=== PATIENT | male | born 1940 | race Caucasian/White ===

== ENCOUNTER 2017-08-21 07:08 | Emergency (ER) | payer MEDICARE, OTHER ==
[2017-08-21 07:14] VITALS: BP 161/73; PULSE 67; RESP 17; TEMP 97.6
[2017-08-21] MEDS ORDERED: PENICILLIN G BENZATHINE 1,200,000 UNIT/2 ML SYRINGE IM STA (07:37)
--- NOTE | 2017-08-21 07:39 | ED ---
General Adult HPI - General Chief complaint: Dental/Oral Stated complaint: Dental Time Seen by Provider: 08/21/17 07:22 Source: patient, RN notes reviewed Mode of arrival: ambulatory Limitations: no limitations - History of Present Illness Initial comments: Patient is a pleasant 76-year-old male presenting to the emergency department complaining of dental pain. Patient has had some discomfort for several days however noticed swelling yesterday. Discomfort is left lower. Patient does have a partial in this area. He is admitted as patient does have a history of similar problem with a different tooth previously. No fevers. Patient states discomfort is mild however is more concerned regarding swelling. No dyspnea. Patient is tolerating oral intake. - Related Data Previous Rx's Medication Instructions Recorded Penicillin V Potassium [Pen Vee K] 500 mg PO QID #40 tab 08/21/17 Allergies Allergy/AdvReac Type Severity Reaction Status Date / Time No Known Allergies Allergy Verified 08/21/17 07:10 Review of Systems ROS Statement: Those systems with pertinent positive or pertinent negative responses have been documented in the HPI. ROS Other: All systems not noted in ROS Statement are negative. Constitutional: Denies: fever Eyes: Denies: eye pain ENT: Reports: dental pain. Denies: ear pain Respiratory: Denies: cough, dyspnea Cardiovascular: Denies: chest pain Endocrine: Denies: fatigue Gastrointestinal: Denies: abdominal pain Genitourinary: Denies: dysuria Musculoskeletal: Denies: back pain Skin: Denies: rash Neurological: Denies: weakness Past Medical History Past Medical History: No Reported History, Cancer Additional Past Medical History / Comment(s): Prostate CA -received radiation 2007-06 History of Any Multi-Drug Resistant Organisms: None Reported Past Surgical History: Tonsillectomy Past Psychological History: No Psychological Hx Reported Smoking Status: Current every day smoker Past Alcohol Use History: Occasional Past Drug Use History: None Reported General Exam Limitations: no limitations General appearance: alert, in no apparent distress Head exam: Present: atraumatic Eye exam: Present: normal appearance, PERRL ENT exam: Present: other ( left Maxillary region with mild swelling. No drainable abscess visualized. Mild gingival swelling.) Neck exam: Present: normal inspection Respiratory exam: Present: normal lung sounds bilaterally Cardiovascular Exam: Present: regular rate, normal rhythm GI/Abdominal exam: Present: soft. Absent: tenderness Neurological exam: Present: alert Psychiatric exam: Present: normal affect, normal mood Skin exam: Present: normal color Course Vital Signs 08/21/17 07:10 Temperature 97.6 F Pulse Rate 67 Respiratory 17 Rate Blood Pressure 161/73 O2 Sat by Pulse 100 Oximetry Disposition Clinical Impression: Dental abscess Disposition: HOME SELF-CARE Condition: Stable Instructions: Dental Abscess (ED), Toothache (ED) Additional Instructions: Please follow-up with your dentist in the next day or 2 for recheck. Return for fever, increased pain, increased swelling, worsening symptoms or any other concerns. Avoid using your partial. Prescriptions: Penicillin V Potassium [Pen Vee K] 500 mg PO QID #40 tab Referrals: Ulises Duarte MD [Primary Care Provider] - 1-2 days Time of Disposition: 07:38
== END 2017-08-21 08:00 | disposition home or self-care (01) ==
LOC: EC 07:08
DX: K04.7 Periapical abscess without sinus (principal); F17.200 Nicotine dependence, unspecified, uncomplicated
CPT/HCPCS: 99282; 96372; J0561

== ENCOUNTER 2019-10-23 03:47 | Inpatient (IN) | payer MEDICARE, OTHER ==
[2019-10-23] MEDS ORDERED: NITROGLYCERIN-D5W PMX 50 MG in DEXTROSE/WATER 1 250ML.BAG IV ONE (03:51)
[2019-10-23 04:01] LABS: Basophils # (A) 0.4 k/uL (0-0.2); Basophils % (A) 3 %; Eosinophils # (A) 0.4 k/uL (0-0.7); Eosinophils % (A) 3 %; HCT 50.5 % (39.0-53.0); HGB 16.8 gm/dL (13.0-17.5); Lymphocytes # (A) 3.9 k/uL (1.0-4.8); Lymphocytes % (A) 33 %; MCH 32.3 pg (25.0-35.0); MCHC 33.3 g/dL (31.0-37.0); MCV 96.9 fL (80.0-100.0); Mean Platelet Volume 7.7; Monocytes # (A) 0.7 k/uL (0-1.0); Monocytes % (A) 6 %; Neutrophils # (A) 6.2 k/uL (1.3-7.7); Neutrophils % (A) 53 %; Platelet Count 224 k/uL (150-450); RBC 5.21 m/uL (4.30-5.90); RDW 13.9 % (11.5-15.5); WBC 11.8 k/uL (3.8-10.6)
--- NOTE | 2019-10-23 04:04 | ED ---
SOB HPI - General Chief Complaint: Shortness of Breath Stated Complaint: Diff Breathing Time Seen by Provider: 10/23/19 03:50 Source: EMS Mode of arrival: EMS - History of Present Illness Initial Comments: This patient is 78-year-old man who presents by ambulance to be a value for shortness of breath. Patient had called EMS tonight after his breathing was getting progressively worse. The patient denied chest pain but did state that he was having some intermittent discomfort over the past day. Patient denies history of previous heart attack or congestive heart failure. He denies diaphoresis, palpitations, syncope or lightheadedness, nausea or vomiting. MD Complaint: shortness of breath -: hour(s) Consistency: constant Improves With: oxygen Worsens With: lying flat Associated Symptoms: denies other symptoms Treatments Prior to Arrival: oxygen, aspirin, nitroglycerin - Related Data Home Oxygen Therapy: No Previous Rx's Medication Instructions Recorded Penicillin V Potassium [Pen Vee K] 500 mg PO QID #40 tab 08/21/17 Allergies Allergy/AdvReac Type Severity Reaction Status Date / Time No Known Allergies Allergy Verified 08/21/17 07:10 Review of Systems ROS Statement: Those systems with pertinent positive or pertinent negative responses have been documented in the HPI. ROS Other: All systems not noted in ROS Statement are negative. Constitutional: Denies: fever, chills, weakness Respiratory: Reports: dyspnea. Denies: cough, hemoptysis Cardiovascular: Reports: orthopnea. Denies: chest pain, palpitations, edema, syncope Gastrointestinal: Denies: abdominal pain, nausea, vomiting, melena, hematochezia Genitourinary: Denies: dysuria, hematuria Musculoskeletal: Denies: back pain Skin: Denies: rash Neurological: Denies: headache, weakness, numbness Psychiatric: Reports: anxiety Past Medical History Past Medical History: No Reported History, Cancer Additional Past Medical History / Comment(s): Prostate CA -received radiation 2007-06 History of Any Multi-Drug Resistant Organisms: None Reported Past Surgical History: Tonsillectomy Past Psychological History: No Psychological Hx Reported Smoking Status: Current every day smoker Past Alcohol Use History: Occasional Past Drug Use History: None Reported General Exam General appearance: alert, in distress Head exam: Present: atraumatic, normocephalic Eye exam: Present: normal appearance. Absent: scleral icterus, conjunctival injection ENT exam: Present: normal oropharynx Neck exam: Present: normal inspection Respiratory exam: Present: respiratory distress, rales, accessory muscle use. Absent: wheezes, rhonchi, stridor, decreased breath sounds, prolonged expiratory Cardiovascular Exam: Present: regular rate, normal rhythm, normal heart sounds. Absent: systolic murmur, diastolic murmur, rubs, gallop GI/Abdominal exam: Present: soft. Absent: distended, tenderness, guarding, rebound, rigid, mass Extremities exam: Present: normal inspection, normal capillary refill. Absent: pedal edema, calf tenderness Back exam: Present: normal inspection. Absent: CVA tenderness (R), CVA tenderness (L) Neurological exam: Present: alert Skin exam: Present: warm, intact, normal color, diaphoretic. Absent: rash Course Vital Signs 10/23/19 10/23/19 10/23/19 03:50 03:56 04:02 Pulse Rate 104 H 98 Respiratory 36 H 34 H 36 H Rate Blood Pressure 173/126 175/120 O2 Sat by Pulse 98 98 Oximetry 10/23/19 10/23/19 10/23/19 04:08 04:13 04:18 Pulse Rate 92 93 91 Respiratory 36 H 36 H 36 H Rate Blood Pressure 187/117 186/112 179/105 O2 Sat by Pulse 97 98 98 Oximetry 10/23/19 04:27 Pulse Rate 86 Respiratory 32 H Rate Blood Pressure 158/99 O2 Sat by Pulse 98 Oximetry - Reevaluation(s) Reevaluation #1: 10/23/19 04:07 After reviewing patient's ECG, case discussed with Dr. Dooley, and the [employer] is activated. Medical Decision Making - Lab Data Result diagrams: 10/23/19 03:53 10/23/19 03:53 Lab Results 10/23/19 10/23/19 10/23/19 Range/Units 03:53 03:53 03:53 WBC 11.8 H (3.8-10.6) k/uL RBC 5.21 (4.30-5.90) m/uL Hgb 16.8 (13.0-17.5) gm/dL Hct 50.5 (39.0-53.0) % MCV 96.9 (80.0-100.0) fL MCH 32.3 (25.0-35.0) pg MCHC 33.3 (31.0-37.0) g/dL RDW 13.9 (11.5-15.5) % Plt Count 224 (150-450) k/uL Neutrophils % 53 % Lymphocytes % 33 % Monocytes % 6 % Eosinophils % 3 % Basophils % 3 % Neutrophils # 6.2 (1.3-7.7) k/uL Lymphocytes # 3.9 (1.0-4.8) k/uL Monocytes # 0.7 (0-1.0) k/uL Eosinophils # 0.4 (0-0.7) k/uL Basophils # 0.4 H (0-0.2) k/uL PT (9.0-12.0) sec INR (<1.2) APTT (22.0-30.0) sec Sodium 142 (137-145) mmol/L Potassium 4.2 (3.5-5.1) mmol/L Chloride 109 H (98-107) mmol/L Carbon Dioxide 21 L (22-30) mmol/L Anion Gap 12 mmol/L BUN 20 (9-20) mg/dL Creatinine 0.83 (0.66-1.25) mg/dL Est GFR (CKD-EPI)AfAm >90 (>60 ml/min/1.73 sqM) Est GFR (CKD-EPI)NonAf 86 (>60 ml/min/1.73 sqM) Glucose 208 H (74-99) mg/dL Calcium 8.4 (8.4-10.2) mg/dL Magnesium 2.2 (1.6-2.3) mg/dL Total Bilirubin 0.3 (0.2-1.3) mg/dL AST 29 (17-59) U/L ALT 14 L (21-72) U/L Alkaline Phosphatase 113 (38-126) U/L NT-Pro-B Natriuret Pep 799 pg/mL Total Protein 7.0 (6.3-8.2) g/dL Albumin 4.3 (3.5-5.0) g/dL 10/23/19 Range/Units 03:53 WBC (3.8-10.6) k/uL RBC (4.30-5.90) m/uL Hgb (13.0-17.5) gm/dL Hct (39.0-53.0) % MCV (80.0-100.0) fL MCH (25.0-35.0) pg MCHC (31.0-37.0) g/dL RDW (11.5-15.5) % Plt Count (150-450) k/uL Neutrophils % % Lymphocytes % % Monocytes % % Eosinophils % % Basophils % % Neutrophils # (1.3-7.7) k/uL Lymphocytes # (1.0-4.8) k/uL Monocytes # (0-1.0) k/uL Eosinophils # (0-0.7) k/uL Basophils # (0-0.2) k/uL PT 9.8 (9.0-12.0) sec INR 0.9 (<1.2) APTT 23.8 (22.0-30.0) sec Sodium (137-145) mmol/L Potassium (3.5-5.1) mmol/L Chloride (98-107) mmol/L Carbon Dioxide (22-30) mmol/L Anion Gap mmol/L BUN (9-20) mg/dL Creatinine (0.66-1.25) mg/dL Est GFR (CKD-EPI)AfAm (>60 ml/min/1.73 sqM) Est GFR (CKD-EPI)NonAf (>60 ml/min/1.73 sqM) Glucose (74-99) mg/dL Calcium (8.4-10.2) mg/dL Magnesium (1.6-2.3) mg/dL Total Bilirubin (0.2-1.3) mg/dL AST (17-59) U/L ALT (21-72) U/L Alkaline Phosphatase (38-126) U/L NT-Pro-B Natriuret Pep pg/mL Total Protein (6.3-8.2) g/dL Albumin (3.5-5.0) g/dL - EKG Data -: EKG Interpreted by Nv EKG shows normal: sinus rhythm, axis (Normal), intervals (Normal), QRS complexes (There are ST elevations in inferior leads, 2, 3, aVF. There are ST depressions in leads 1 and aVL. Consistent with acute [place].) Rate: normal (Rate 99 bpm) Interpretation: acute [place] Disposition Referrals: Ulises Duarte MD [Primary Care Provider] - 1-2 days
[2019-10-23 04:09] LABS: INR 0.9 (<1.2); Partial Thromboplastin Time 23.8 sec (22.0-30.0); Prothrombin Time 9.8 sec (9.0-12.0)
[2019-10-23] MEDS ORDERED: HEPARIN SODIUM,PORCINE 5,000 UNIT/ML 1 ML VIAL IV ONE (04:09)
[2019-10-23] MEDS ORDERED: HEPARIN SODIUM,PORCINE 5,000 UNIT/ML 1 ML VIAL IV PRN (04:09)
[2019-10-23 04:11] LABS: ALT 14 U/L (21-72); AST 29 U/L (17-59); African American GFR (CKD) >90 (>60 ml/min/1.73 sqM); Albumin 4.3 g/dL (3.5-5.0); Alkaline Phosphatase 113 U/L (38-126); Anion Gap 12 mmol/L; Blood Urea Nitrogen 20 mg/dL (9-20); Calcium 8.4 mg/dL (8.4-10.2); Carbon Dioxide 21 mmol/L (22-30); Chloride 109 mmol/L (98-107); Glucose 208 mg/dL (74-99); Magnesium 2.2 mg/dL (1.6-2.3); Non-African American GFR(CKD) 86 (>60 ml/min/1.73 sqM); Potassium 4.2 mmol/L (3.5-5.1); Sodium 142 mmol/L (137-145); Total Bilirubin 0.3 mg/dL (0.2-1.3)
[2019-10-23] MEDS ORDERED: ATORVASTATIN 80 MG TAB PO STA (04:11)
[2019-10-23] MEDS ORDERED: HEPARIN SOD,PORK IN 0.45% NACL 25,000 UNIT in 0.45% NACL 1 250ML.BAG IV SCH (04:15)
--- NOTE | 2019-10-23 04:16 | XR ---
EXAMINATION TYPE: XR chest 1V portable DATE OF EXAM: 10/23/2019 COMPARISON: NONE HISTORY: Short of breath TECHNIQUE: Single frontal view of the chest is obtained. FINDINGS: There is moderate pulmonary interstitial and alveolar edema. Heart size is normal. There a re chest leads. There is no definite pleural effusion. IMPRESSION: Pulmonary edema. This could be acute congestive heart failure.
[2019-10-23] MEDS ORDERED: MORPHINE SULFATE 4 MG/ML SYRINGE IV STA (04:20)
[2019-10-23] MEDS ORDERED: IV FLUID CONTINUATION 1,000 ML IV ONE (04:33)
[2019-10-23] MEDS ORDERED: SODIUM CHLORIDE 0.9% 500 ML 500 ML IV ONE (04:33)
[2019-10-23] MEDS ORDERED: LIDOCAINE 1% INJ 10MG/ML (20 ML MDV) ONE (04:45)
[2019-10-23] MEDS ORDERED: VERAPAMIL 2.5 MG/ML 2 ML AMP ONE (04:46)
[2019-10-23] MEDS ORDERED: fentaNYL (PF) 50 MCG/ML 2 ML AMP ONE (04:51)
[2019-10-23] MEDS ORDERED: LIDOCAINE 1% INJ 10MG/ML (20 ML MDV) SQ ONE (04:52)
[2019-10-23] MEDS ORDERED: fentaNYL (PF) 50 MCG/ML 2 ML AMP IV ONE (04:53)
[2019-10-23] MEDS ORDERED: VERAPAMIL SYRINGE (5 MG/10 ML) INTRAARTER ONE (04:54)
[2019-10-23] MEDS ORDERED: BIVALIRUDIN BOLUS 250 MG/50 ML IV ONE (05:00)
[2019-10-23] MEDS ORDERED: BIVALIRUDIN 250 MG in SODIUM CHLORIDE 0.9% 50 ML IV ONE (05:00)
[2019-10-23] MEDS ORDERED: TICAGRELOR 90 MG TAB ONE (05:05)
[2019-10-23] MEDS ORDERED: TICAGRELOR 90 MG TAB PO ONE (05:09)
[2019-10-23] MEDS ORDERED: IOPAMIDOL-370 125ML BTL INJ ONE (05:10)
[2019-10-23] MEDS ORDERED: FUROSEMIDE 10 MG/ML 4 ML VIAL ONE (05:21)
[2019-10-23] MEDS ORDERED: FUROSEMIDE 10 MG/ML 4 ML VIAL IV ONE (05:24)
[2019-10-23] MEDS ORDERED: IOPAMIDOL-370 100ML BTL INJ ONE (05:25)
[2019-10-23] MEDS ORDERED: RX INFO: IV CONTRAST WAS GIVEN 1 EACH MISC MISCELLANE PRN (05:39)
[2019-10-23] MEDS ORDERED: ZOLPIDEM 5 MG TAB PO PRN (05:39)
[2019-10-23] MEDS ORDERED: NITROGLYCERIN SL TABS 0.4 MG TAB SUBLINGUAL PRN (05:39)
[2019-10-23] MEDS ORDERED: ATROPINE SULFATE 0.1 MG/ML 10ML SYRINGE IV PRN (05:39)
[2019-10-23] MEDS ORDERED: MAG HYDROX/AL HYDROX/SIMETH 30 ML CUP PO PRN (05:39)
[2019-10-23] MEDS ORDERED: SODIUM CHLORIDE 0.9% 1,000 ML IV SCH (05:45)
[2019-10-23 06:31] LABS: Glucose,Whole Blood 136 mg/dL (75-99)
[2019-10-23] MEDS: TICAGRELOR 90 MG TAB PO SCH ×2 (08:50→20:37)
[2019-10-23] MEDS: ASPIRIN 81 MG PO SCH (08:50)
[2019-10-23] MEDS: SPIRONOLACTONE 25 MG TAB PO SCH (08:53)
[2019-10-23] MEDS: METOPROLOL TARTRATE 25 MG TAB PO SCH ×2 (08:53→20:37)
[2019-10-23] MEDS: FUROSEMIDE 20 MG TAB PO SCH ×2 (08:53→20:37)
[2019-10-23] MEDS ORDERED: LISINOPRIL 10 MG TAB PO SCH (09:00)
[2019-10-23 09:59] VITALS: BMI 33.6
--- NOTE | 2019-10-23 10:22 | CONS ---
CONSULTATION Mr. Leone is a 78-year-old male with known history of hypertension, hyperlipidemia, chronic tobacco use, who presented with symptoms of progressive dyspnea and evidence of pulmonary edema to the emergency room with discomfort between the shoulder blades. The discomfort between the shoulder blade has been going on for a few months, worse today with associated worsening dyspnea. The patient has no prior history of cardiac disease. He denies any documented history of myocardial infarction or congestive heart failure. He has no history of PND, orthopnea or significant peripheral edema. No dizziness, palpitation, or syncope. His coronary risk factors are remarkable for chronic tobacco use, hypertension, hyperlipidemia. He is nondiabetic. Medications include a blood pressure medication and cholesterol medication. Patient cannot recall the name. REVIEW OF SYSTEMS: Respiratory system: He has dyspnea on exertion. He has chronic tobacco use. GI system: No recent GI bleed. No peptic ulcer disease. system: No dysuria or hematuria. Nervous system: No stroke or seizure. PHYSICAL EXAMINATION: He is a 78-year-old male evaluated in the cardiac catheterization laboratory. Alert and oriented on BiPAP. A blood pressure running in the 160s/70s with a heart rate in the 70s. HEAD: Normocephalic. Eyes sclerae anicteric. NECK no bruit. LUNGS: Clear to auscultation anteriorly. HEART: Regular rate and rhythm rate. S1, S2. No S3. No rub appreciated. ABDOMEN: Soft, obese nontender. EXTREMITIES: No edema. Intact distal pulses. LAB DATA: EKG revealed sinus mechanism with a QS in the inferior leads and ST elevation, 2, [address]-segment changes anteriorly. Chest x-ray is consistent with pulmonary edema. Troponin of 0.78. IMPRESSION: 1. Acute myocardial infarction with ST elevation inferiorly. 2. Chronic tobacco use. 3. Acute pulmonary edema. 4. Hyperlipidemia. 5. Hypertension. RECOMMENDATIONS: I recommend proceeding with emergent cardiac catheterization. The procedure as well as risks and complications were discussed with the patient who is in full understanding and agreement. Thank you for this consult. We will follow with you. NADEEM / SASHAN: [id number] /
--- NOTE | 2019-10-23 10:37 | CC ---
CARDIAC CATHETERIZATION REPORT Mr. Leone 78-year-old male who presented with an an acute myocardial infarction, evidence of pulmonary edema, recommendation made regarding cardiac catheterization. The procedure as well as risks and complications were discussed with the patient who is in full understanding and agreement. DESCRIPTION OF PROCEDURE: Patient was brought to lab assistant in a fasting semi-sedated state after receiving fentanyl and Benadryl and achieving moderate conscious sedated state. Using Xylocaine anesthesia and Seldinger technique, a 6-Montserratian sheath was introduced in the right radial artery. Selective right coronary angiography was performed using 6-Mont[place]erratian FR4 guiding catheter. Images of the right coronary artery were performed. Following that, the 6-Montserratian FL 3.5 guiding catheter was introduced in the system and images of the left anterior descending artery and angioplasty and stenting was performed. Following that, the 6-[place]serratian FL was used to cross the aortic valve and the left ventricular end- diastolic pressure was calculated. Following that, the catheter and sheath were removed. Hemostasis was obtained with deployment of a TR band. There was no immediate complication. Patient is returned to his room in stable condition. Of note, the patient received intra-arterial verapamil. FINDINGS: LEFT MAIN: This is a large-sized vessel bifurcating to the left circumflex, left anterior descending artery, left main coronary artery has no evidence of high-grade stenosis. LEFT ANTERIOR DESCENDING CORONARY ARTERY: Left anterior descending artery: This vessel has a 99% stenosis proximally in the long segment prior to the bifurcation of the diagonal branch. The rest of the vessel has no high-grade stenosis. CIRCUMFLEX CORONARY ARTERY: Left circumflex: This is a nondominant large size vessel giving rise to a large obtuse marginal branch. The left circumflex as well as branches have no evidence of obstructive coronary artery disease. RIGHT CORONARY ARTERY: Right coronary artery: This vessel is totally occluded in mid segment with ipsilateral collaterals and contralateral collaterals from the LAD. LEFT VENTRICULOGRAM: Not performed. HEMODYNAMICS: There was no gradient across the aortic valve. The left ventricle end-diastolic pressure was 20-24 mmHg. CONCLUSION: 1. Chronic occluded right coronary artery. 2. Acute subtotal occlusion of the proximal LAD. 3. Ipsilateral collaterals and contralateral collateral to the right coronary artery. RECOMMENDATION: In view of findings and anatomy, I recommend proceeding with angioplasty and stenting. The procedures, risks and complications were discussed with the patient who is in full understanding and agreement. MMODL / IJN: [id number] /
--- NOTE | 2019-10-23 10:43 | PTCA ---
PERCUTANEOUSTRANS CORORONARY ANGIOGRAPHY Mr. Lenoe is a 78-year-old male with no prior documented coronary artery disease, history of hypertension, hyperlipidemia, and chronic tobacco use, who presented with an acute pulmonary edema and evidence of myocardial infarction with QS in the inferior leads and ST-segment elevation. In view of that, underwent cardiac catheterization and was found to have a totally occluded right coronary artery and critical stenosis in the proximal LAD. Recommendation made regarding angioplasty and stenting. The procedure, as well as risks and complications were discussed with the patient who is in full understanding and agreement. DESCRIPTION OF PROCEDURE: A 6-Greek FR4 guiding catheter was used to cannulate the right coronary ostium. Images of the right coronary artery were performed. Attempt to cross the chronic occlusion of the right coronary artery were unsuccessful and appears to be chronic with ipsilateral collaterals. At that time, the wire and the catheter were removed and a 6- Greek FL 3.5 guiding catheter was introduced in the system. After cannulating the left main, a 0.014 balanced medium weight J-wire was advanced across the LAD and positioned distally. Then a 2.5 x 12 mm Trek balloon was advanced and one inflation at 8 atmospheres was done. Following that, the balloon was removed and a 3.25 x 23 mm Xience Meghann stent was deployed. It was dilated at 16 atmospheres and after removing the balloon, another 3.25 x 12 mm Xience Meghann stent was deployed distal to the first one and it was dilated at 16 atmospheres. After the last inflation, after appropriate wait, the balloon and the guide wire were withdrawn back in the guiding catheter and a 6-Greek FL 3 and half was used to cross the aortic valve and left ventricular end- diastolic pressure was calculated. Following that, the catheter and sheath were removed. Hemostasis was obtained with deployment of a TR band. There was no immediate complication. Patient is returned to his room in stable condition. Of note, the patient received loading dose of Brilinta. He received Angiomax per protocol, but there was a question of infiltration of the IV catheter site and he subsequently received 19154 units of intravenous heparin. He had no chest discomfort, but there was mild EKG changes that improved at the end of the procedure. RESULTS: 1. Successful stenting of the proximal LAD with reduction of stenosis from 100% to 0%. 2. Chronically occluded right coronary artery. RECOMMENDATION: The patient will be continued on aspirin, Brilinta. The importance of dual antiplatelet treatment were discussed with the patient. He will receive beta blockers, melba inhibitor and statin. He will be re-evaluated regarding the need to undergo revascularization of his right coronary artery if there is viability in his symptoms in that territory. Those findings and recommendations were discussed with the patient who is in full understanding and agreement. Duration of procedure is 40 minutes. NADEEM / ISMAEL: [id number] /
--- NOTE | 2019-10-23 15:23 | P.HPIM ---
History of Present Illness H&P Date: 10/23/19 Chief Complaint: Chest pressure, worsening dyspnea This is a 78 show old gentleman patient of Dr. Chaudhari. He has known history of hypertension hyperlipidemia chronic tobacco use, without prior history of MS or diabetes mellitus admitted to the emergency room secondary to increasing dyspnea and shortness of breath. Patient was well he was seen by his PCP approximately last week, did not require any treatment or medication changes. Patient was sick for approximately one day 2 days, with cough, and increasing shortness of breath. Patient was coughing so hard now he caused him to have some chest pressure, radiating to the back side. He denies any history of cardiac disease no previous stroke, and was not diagnosed to have COPD by anyone. He has discomfort between the shoulder blades off and on, did not require any evaluation as he didn't mention this to his PCP. He subsequently was seen in the emergency room, for which nitroglycerin O2 and aspirin was given, which has relieved some of the symptoms. His chest pressure continued from the time he was at home until his ER evaluation In the emergency room, he had troponins that was 0.78, EKG shows elevated ST segments to 3 and aVF, chest x-ray consistent with pulmonary edema, patient required emergent cardiac cath are 5:55 AM today 10/23/[address] michelle. Statins beta anne marie and antiplatelet agents were subsequently started Cardiac performed 10/23/2019 showed a totally occluded right coronary artery, unsuccessful stenting, critical stenosis proximal LAD, with successful stenting from 99% to 0% with Xience stent 2 stents placed in this vessel, patient was subsequently transferred to ICU, he would be reevaluated regarding revascularization of his RCA . And is committed to quitting smoking, he is receiving beta blockers Zachary inhibitors and statins. He is also on dual antiplatelet regimen Review of Systems Constitutional: Reports as per HPI, Denies anorexia, Denies chills, Denies chronic headaches, Denies chronic pain, Denies daytime sleepiness, Denies fatigue, Denies fever, Denies lethargy, Denies malaise, Denies night sweats, Denies poor appetite, Denies sweats, Denies weakness, Denies weight gain, Denies weight loss Ears, nose, mouth and throat: Reports as per HPI Cardiovascular: Reports as per HPI, Denies chest pain, Denies claudication, Denies decreased exercise tolerance, Denies dyspnea on exertion, Denies edema, Denies high blood pressure, Denies irregular heart beat, Denies leg edema, Denies lightheadedness, Denies orthopnea, Denies palpitations, Denies paroxysmal nocturnal dyspnea, Denies phlebitis, Denies rapid heart beat, Denies shortness of breath, Denies syncope Respiratory: Reports as per HPI, Reports cough, Reports cough with sputum, Denies congestion, Denies dyspnea, Denies excessive sputum, Denies hemoptysis, Denies home oxygen, Denies pain, Denies pain on inspiration, Denies pleurisy, Denies respiratory infections, Denies sleep apnea, Denies snoring, Denies wheezing Gastrointestinal: Reports as per HPI Genitourinary: Reports as per HPI Musculoskeletal: Reports as per HPI, Denies arm numbness/tingling, Denies atrophy, Denies fractures, Denies frequent falls, Denies gait dysfunction, Denies hot joints, Denies leg numbness/tingling, Denies limitation of motion, Denies loss of height, Denies low back pain, Denies morning stiffness, Denies muscle cramps, Denies muscle weakness, Denies myalgias, Denies neck pain, Denies neck stiffness, Denies prior amputations, Denies redness of joints, Denies shooting arm pain, Denies shooting leg pain Integumentary: Reports as per HPI, Denies acne, Denies boils, Denies brittle nails, Denies change in hair/nails, Denies color changes, Denies darkening of skin, Denies depigmentation, Denies dryness, Denies foot/leg ulcers, Denies growths, Denies hirsutism, Denies lesions, Denies onychomycosis, Denies pruritus, Denies rash, Denies sores, Denies striae, Denies unusual bruising, Denies wounds Neurological: Reports as per HPI, Denies aphasia, Denies ataxia, Denies balance difficulties, Denies burning pain, Denies change in mentation, Denies change in smell/taste, Denies change in speech, Denies confusion, Denies convulsions, Denies double vision, Denies gait dysfunction, Denies head injury, Denies headaches, Denies hearing difficulties, Denies lack of coordination, Denies loss of vision, Denies memory loss, Denies migraines, Denies motor disturbance, Denies numbness, Denies paralysis, Denies paresthesias, Denies seizures, Denies sensory deficit, Denies spasticity, Denies syncope, Denies tic, Denies tingling, Denies transient paralysis, Denies tremors, Denies vertigo, Denies weakness, Denies visual changes Psychiatric: Reports as per HPI, Denies anhedonia, Denies anxiety, Denies anxiety attacks, Denies change in appetite, Denies change in libido, Denies change in sleep habits, Denies confusion, Denies depression, Denies difficulty concentrating, Denies disorientation, Denies hallucinations, Denies hopelessness, Denies hypersomnia, Denies insomnia, Denies irritability, Denies memory loss, Denies mood swings, Denies paranoia, Denies sadness/tearfulness, Denies sleep disturbances, Denies suicidal ideation Endocrine: Reports as per HPI Hematologic/Lymphatic: Reports as per HPI Allergic/Immunologic: Reports as per HPI, Denies allergic rhinitis, Denies anaphylaxis, Denies angioedema, Denies gluten intolerance, Denies persistent infections, Denies seasonal allergies, Denies urticaria, Denies wheezing Past Medical History Past Medical History: No Reported History, Cancer, Hypertension Additional Past Medical History / Comment(s): Prostate CA -received radiation 2007-06 History of Any Multi-Drug Resistant Organisms: None Reported Past Surgical History: Tonsillectomy Past Anesthesia/Blood Transfusion Reactions: No Reported Reaction Past Psychological History: No Psychological Hx Reported Smoking Status: Current every day smoker (One pack per day since teenage years) Past Alcohol Use History: Occasional Past Drug Use History: None Reported - Past Family History Father Family Medical History: Cancer (Kidney liver) Mother Family Medical History: No Reported History (Old-age) Sister(s) Family Medical History: Cancer (Skin cancer) Daughter(s) Family Medical History: No Reported History Medications and Allergies Home Medications Medication Instructions Recorded Confirmed Type Aspirin EC [Ecotrin Low Dose] 81 mg PO DAILY 10/23/19 10/23/19 History Ibuprofen [Motrin] 600 mg PO TID PRN 10/23/19 10/23/19 History Lisinopril 20 mg PO BID 10/23/19 10/23/19 History Metoprolol Tartrate [Lopressor] 100 mg PO BID 10/23/19 10/23/19 History Multivitamins, Thera [Multivitamin 1 tab PO DAILY 10/23/19 10/23/19 History (formulary)] Simvastatin [Zocor] 10 mg PO HS 10/23/19 10/23/19 History Triamcinolone 0.5% Cream [Kenalog 1 applic TOPICAL BID PRN 10/23/19 10/23/19 History 0.5% Cream] Allergies Allergy/AdvReac Type Severity Reaction Status Date / Time No Known Allergies Allergy Verified 10/23/19 08:44 Physical Exam Vitals: Vital Signs Temp Pulse Resp BP Pulse Ox 10/23/19 14:00 52 L 10 L 90/63 98 10/23/19 13:30 54 L 12 122/67 98 10/23/19 13:00 55 L 5 L 126/92 97 10/23/19 12:30 70 125/63 92 L 10/23/19 12:00 97.7 F 65 18 131/85 96 10/23/19 11:00 60 22 126/56 97 10/23/19 10:30 64 12 127/68 96 10/23/19 10:00 62 26 H 128/61 97 10/23/19 09:30 62 13 102/70 96 10/23/19 09:00 68 30 H 121/63 98 10/23/19 08:34 97 10/23/19 08:30 63 19 124/64 97 10/23/19 08:00 97.7 F 67 23 114/62 96 10/23/19 07:30 66 16 96 10/23/19 07:00 68 16 129/70 95 10/23/19 06:30 98.3 F 65 20 144/97 93 L 10/23/19 06:25 93 L 10/23/19 04:27 86 32 H 158/99 98 10/23/19 04:18 91 36 H 179/105 98 10/23/19 04:13 93 36 H 186/112 98 10/23/19 04:08 92 36 H 187/117 97 10/23/19 04:02 98 36 H 175/120 98 10/23/19 03:56 34 H 10/23/19 03:50 104 H 36 H 173/126 98 Intake and Output 10/22/19 10/23/19 10/23/19 22:59 06:59 14:59 Intake Total 405.40 638.8 Output Total 500 2200 Balance -94.60 -1561.2 Intake: IV 403.95 550 Sodium Chloride 0.9% 1, 75 550 000 ml @ 75 mls/hr IV . [id number] [facility] Rx#:[id number] Intake, IV Titration 1.45 88.8 Amount Nitroglycerin-D5w Pmx 50 1.45 88.8 mg In Dextrose/Water 1 250ml.bag @ 10 MCG/MIN 3 mls/hr IV .Q24H [facility] Rx#: [id number] Output: Urine 500 2200 Other: Voiding Method Urinal Weight 94.6 kg 94.6 kg - Constitutional General appearance: cooperative, no acute distress, obese - EENT Eyes: anicteric sclerae, EOMI, PERRLA, dentition normal, normal appearance ENT: NA/AT, normal oropharynx - Neck Neck: normal ROM - Respiratory Respiratory: bilateral: CTA, diminished, negative: dullness, rales, wheezing - Cardiovascular Rhythm: regular Heart sounds: normal: S1, S2 - Gastrointestinal General gastrointestinal: normal bowel sounds, soft - Integumentary Integumentary: normal, normal turgor - Neurologic Neurologic: CNII-XII intact - Musculoskeletal Musculoskeletal: gait normal, strength equal bilaterally - Psychiatric Psychiatric: A&O x's 3, appropriate affect, intact judgment & insight Results CBC & Chem 7: 10/23/19 03:53 10/23/19 03:53 Labs: Abnormal Lab Results - Last 24 Hours (Table) 10/23/19 10/23/19 10/23/19 Range/Units 03:53 03:53 03:53 WBC 11.8 H (3.8-10.6) k/uL Basophils # 0.4 H (0-0.2) k/uL Chloride 109 H (98-107) mmol/L Carbon Dioxide 21 L (22-30) mmol/L Glucose 208 H (74-99) mg/dL POC Glucose (mg/dL) (75-99) mg/dL ALT 14 L (21-72) U/L Troponin I 0.078 H* (0.000-0.034) ng/mL 10/23/19 10/23/19 10/23/19 Range/Units 03:53 06:20 09:46 WBC (3.8-10.6) k/uL Basophils # (0-0.2) k/uL Chloride (98-107) mmol/L Carbon Dioxide (22-30) mmol/L Glucose (74-99) mg/dL POC Glucose (mg/dL) 136 H (75-99) mg/dL ALT (21-72) U/L Troponin I 0.075 H* 47.100 H* (0.000-0.034) ng/mL Laboratory Results WBC 11.8 k/uL (3.8-10.6) H 10/23/19 03:53 RBC 5.21 m/uL (4.30-5.90) 10/23/19 03:53 Hgb 16.8 gm/dL (13.0-17.5) 10/23/19 03:53 Hct 50.5 % (39.0-53.0) 10/23/19 03:53 MCV 96.9 fL (80.0-100.0) 10/23/19 03:53 MCH 32.3 pg (25.0-35.0) 10/23/19 03:53 MCHC 33.3 g/dL (31.0-37.0) 10/23/19 03:53 RDW 13.9 % (11.5-15.5) 10/23/19 03:53 Plt Count 224 k/uL (150-450) 10/23/19 03:53 Neutrophils % 53 % 10/23/19 03:53 Lymphocytes % 33 % 10/23/19 03:53 Monocytes % 6 % 10/23/19 03:53 Eosinophils % 3 % 10/23/19 03:53 Basophils % 3 % 10/23/19 03:53 Neutrophils # 6.2 k/uL (1.3-7.7) 10/23/19 03:53 Lymphocytes # 3.9 k/uL (1.0-4.8) 10/23/19 03:53 Monocytes # 0.7 k/uL (0-1.0) 10/23/19 03:53 Eosinophils # 0.4 k/uL (0-0.7) 10/23/19 03:53 Basophils # 0.4 k/uL (0-0.2) H 10/23/19 03:53 PT 9.8 sec (9.0-12.0) 10/23/19 03:53 INR 0.9 (<1.2) 10/23/19 03:53 APTT 23.8 sec (22.0-30.0) 10/23/19 03:53 Sodium 142 mmol/L (137-145) 10/23/19 03:53 Potassium 4.2 mmol/L (3.5-5.1) 10/23/19 03:53 Chloride 109 mmol/L (98-107) H 10/23/19 03:53 Carbon Dioxide 21 mmol/L (22-30) L 10/23/19 03:53 Anion Gap 12 mmol/L 10/23/19 03:53 BUN 20 mg/dL (9-20) 10/23/19 03:53 Creatinine 0.83 mg/dL (0.66-1.25) 10/23/19 03:53 Est GFR (CKD-EPI)AfAm >90 (>60 ml/min/1.73 sqM) 10/23/19 03:53 Est GFR (CKD-EPI)NonAf 86 (>60 ml/min/1.73 sqM) 10/23/19 03:53 Glucose 208 mg/dL (74-99) H 10/23/19 03:53 POC Glucose (mg/dL) 136 mg/dL (75-99) H 10/23/19 06:20 POC Glu Senior Applications [employer] JEAN MARIE Hubert Seth 10/23/19 06:20 Calcium 8.4 mg/dL (8.4-10.2) 10/23/19 03:53 Magnesium 2.2 mg/dL (1.6-2.3) 10/23/19 03:53 Total Bilirubin 0.3 mg/dL (0.2-1.3) 10/23/19 03:53 AST 29 U/L (17-59) 10/23/19 03:53 ALT 14 U/L (21-72) L 10/23/19 03:53 Alkaline Phosphatase 113 U/L (38-126) 10/23/19 03:53 Troponin I 47.100 ng/mL (0.000-0.034) H* 10/23/19 09:46 NT-Pro-B Natriuret Pep 799 pg/mL 10/23/19 03:53 Total Protein 7.0 g/dL (6.3-8.2) 10/23/19 03:53 Albumin 4.3 g/dL (3.5-5.0) 10/23/19 03:53 Thrombosis Risk Factor Assmnt - DVT/VTE Prophylaxis DVT/VTE Prophylaxis: Pharmacologic Prophylaxis ordered - Choose All That Apply Any of the Below Risk Factors Present?: Yes Each Factor Represents 1 point: Acute MS, Medical pt on bed rest, Obesity (BMI >25) Other Risk Factors: Yes Each Risk Factor Represents 2 Points: Patient confined to bed Each Risk Factor Represents 3 Points: Age 75 years or older Thrombosis Risk Factor Assessment Total Risk Factor Score: 8 Thrombosis Risk Factor Assessment Level: High Risk Assessment and Plan Plan: 1. acute STEMI, inferior MS, chronically occluded RCA, unsuccessful stenting, critical stenosis proximal LAD with successful balloon angioplasty and stenting 2 stents placed in this vessel Dr. Dooley on 10/23/2019 emergently placed. Patient is on dual antiplatelets. brillinta and aspirin, Lipitor 80, lisinopril 5, metoprolol 25 twice a day and Aldactone 25 mg daily Lasix and nitrates when necessary as well as nitro drip currently chest pain-free. 2. Acute pulmonary edema oral Lasix 20 mg twice a day and Aldactone 25 mg daily 3 COPD albuterol when necessary not requiring steroids iv at this time tobacco cessation reinforced 4 hyperglycemia check aic Accu-Cheks before meals and at bedtime NovoLog scale 5 tobacco abuse current patient committed to tobacco cessation, not needing any replacement therapy at this time 5 hyperlipidemia started on Lipitor 80 mg daily for which she is going to go home, discontinue Zocor 6 bph without luts not on any maintenance medications prior to admission 7 hypertension metoprolol 25 mg twice a day lisinopril 5 mg daily
[2019-10-23 16:46] LABS: Glucose,Whole Blood 112 mg/dL (75-99)
[2019-10-23] MEDS: INSULIN ASPART (NovoLOG) 100 UNIT/ML VIAL SQ SCH ×2 (17:22→20:35)
[2019-10-23] MEDS: ATORVASTATIN 80 MG TAB PO SCH (20:37)
[2019-10-23 20:46] LABS: Glucose,Whole Blood 122 mg/dL (75-99)
[2019-10-24 05:55] LABS: Basophils # (A) 0.1 k/uL (0-0.2); Basophils % (A) 1 %; Eosinophils # (A) 0.1 k/uL (0-0.7); Eosinophils % (A) 1 %; HGB 13.2 gm/dL (13.0-17.5); Lymphocytes # (A) 1.1 k/uL (1.0-4.8); Lymphocytes % (A) 13 %; MCH 30.5 pg (25.0-35.0); MCHC 32.2 g/dL (31.0-37.0); MCV 94.8 fL (80.0-100.0); Mean Platelet Volume 7.9; Monocytes # (A) 0.5 k/uL (0-1.0); Monocytes % (A) 6 %; Neutrophils # (A) 6.8 k/uL (1.3-7.7); Neutrophils % (A) 78 %; Platelet Count 121 k/uL (150-450); RBC 4.32 m/uL (4.30-5.90); WBC 8.7 k/uL (3.8-10.6)
[2019-10-24 05:57] LABS: African American GFR (CKD) >90 (>60 ml/min/1.73 sqM); Anion Gap 5 mmol/L; Blood Urea Nitrogen 14 mg/dL (9-20); Calcium 8.4 mg/dL (8.4-10.2); Carbon Dioxide 28 mmol/L (22-30); Chloride 106 mmol/L (98-107); Cholesterol 106 mg/dL (<200); Glucose 109 mg/dL (74-99); HDL Cholesterol 25 mg/dL (40-60); LDL Cholesterol,Calculated 52 mg/dL (0-99); Non-African American GFR(CKD) >90 (>60 ml/min/1.73 sqM); Potassium 3.3 mmol/L (3.5-5.1); Sodium 139 mmol/L (137-145); Triglycerides 147 mg/dL (<150)
[2019-10-24] MEDS ORDERED: Potassium Replacement Protocol 1 EACH MISC MISCELLANE PRN (06:06)
[2019-10-24] MEDS: INSULIN ASPART (NovoLOG) 100 UNIT/ML VIAL SQ SCH ×4 (06:47→20:37)
[2019-10-24] MEDS: POTASSIUM CHLORIDE ER 20 MEQ TAB.ER PO SCH ×2 (06:49→08:18)
--- NOTE | 2019-10-24 07:53 | PN ---
PROGRESS NOTE Mr. Leone is a 78-year-old male who has a history of hypertension, hyperlipidemia, who presented with an acute myocardial infarction yesterday, underwent cardiac catheterization, was found to have chronically occluded right coronary artery and critical stenosis in the LAD underwent successful stenting of the LAD. He is feeling much better today. His breathing is better. He has no further upper back discomfort that was his presenting symptoms. He denies any dizziness or palpitation. He denies any nausea. He continues on aspirin once a day, Brilinta 80 mg twice a day, Lasix 20 mg twice a day, lisinopril 5 mg daily, metoprolol tartrate 25 mg twice a day, spironolactone 25 mg daily. PHYSICAL EXAMINATION: Blood pressure running in the 160s with the heart rate in the 60s. LUNGS: Clear. HEART: Regular rate and rhythm. S1, S2. No S3. No rub. ABDOMEN: Soft, nontender. EXTREMITIES: No edema. Right radial pulse intact. EKG revealed QS pattern in the inferior leads with biphasic T-waves anteriorly. His peak troponin is 47. BUN and creatinine of 14 and 0.68. Potassium is 3.3. Hemoglobin is 13.2. IMPRESSION: 1. Status post acute anterior myocardial infarction, the LAD is giving collaterals to the chronically occluded right coronary artery. 2. History of hypertension. 3. History of hyperlipidemia. 4. Prior history of smoking. RECOMMENDATION: I will increase the dose of his CARLOS inhibitor. Continue the rest of his medical regimen. We will obtain echocardiogram with Doppler. If he is stable, he should be able to be transferred to telemetry floor this afternoon. Depending on his progress, further recommendation will be made. MMODL / IJN: [id number] / MTDD
[2019-10-24] MEDS: FUROSEMIDE 20 MG TAB PO SCH ×2 (08:19→20:36)
[2019-10-24] MEDS: TICAGRELOR 90 MG TAB PO SCH ×2 (08:19→20:37)
[2019-10-24] MEDS: ASPIRIN 81 MG PO SCH (08:19)
[2019-10-24] MEDS: SPIRONOLACTONE 25 MG TAB PO SCH (08:19)
[2019-10-24] MEDS: METOPROLOL TARTRATE 25 MG TAB PO SCH ×2 (08:19→20:37)
[2019-10-24] MEDS: LISINOPRIL 10 MG TAB PO SCH ×2 (08:19→20:37)
--- NOTE | 2019-10-24 10:44 | ECHOF ---
Referral Reason:mi MEASUREMENTS -------- HEIGHT: 167.6 cm WEIGHT: 94.3 kg BP: 161/85 RVIDd: 3.6 cm (< 3.3) IVSd: 1.4 cm (0.6 - 1.1) LVIDd: 4.8 cm (3.9 - 5.3) LVPWd: 1.4 cm (0.6 - 1.1) IVSs: 2.3 cm LVIDs: 3.0 cm LVPWs: 1.9 cm LA Diam: 4.0 cm (2.7 - 3.8) LAESV Index (A-L): 29.73 ml/m Ao Diam: 3.7 cm (2.0 - 3.7) AV Cusp: 1.9 cm (1.5 - 2.6) MV EXCURSION: 18.959 mm (> 18.000) MV EF SLOPE: 62 mm/s (70 - 150) EPSS: 0.7 cm MV E Pedro: 0.98 m/s MV DecT: 231 ms MV A Pedro: 0.78 m/s MV E/A Ratio: 1.26 RAP: 5.00 mmHg RVSP: 39.55 mmHg FINDINGS -------- Sinus rhythm. This was a technically adequate study. The left ventricular size is normal. There is moderate concentric left ventricular hypertrophy. O verall left ventricular systolic function is normal with, an EF between 55 - 60 %. Basal inferior L V wall motion is hypokinetic. The right ventricle is mildly enlarged. LA is midly dilated 29-33ml/m2. The right atrium is normal in size. Interatrial and interventricular septum intact. The aortic valve is trileaflet and appears structurally normal. The mitral valve is normal. There is trace to mild mitral regurgitation. Mild tricuspid regurgitation present. There is mild pulmonary hypertension. The right ventricular systolic pressure, as measured by Doppler, is 39.55mmHg. There is no pulmonic regurgitation present. The aortic root size is normal. Normal inferior vena cava with normal inspiratory collapse consistent with estimated right atrial pre ssure of 5 mmHg. There is no pericardial effusion. CONCLUSIONS -------- 1. Sinus rhythm. 2. This was a technically adequate study. 3. The left ventricular size is normal. 4. There is moderate concentric left ventricular hypertrophy. 5. Overall left ventricular systolic function is normal with, an EF between 55 - 60 %. 6. Basal inferior LV wall motion is hypokinetic. 7. The right ventricle is mildly enlarged. 8. LA is midly dilated 29-33ml/m2. 9. The right atrium is normal in size. 10. Interatrial and interventricular septum intact. 11. The aortic valve is trileaflet and appears structurally normal. 12. The mitral valve is normal. 13. There is trace to mild mitral regurgitation. 14. Mild tricuspid regurgitation present. 15. There is mild pulmonary hypertension. 16. The right ventricular systolic pressure, as measured by Doppler, is 39.55mmHg. 17. There is no pulmonic regurgitation present. 18. The aortic root size is normal. 19. Normal inferior vena cava with normal inspiratory collapse consistent with estimated right atrial pressure of 5 mmHg. 20. There is no pericardial effusion. [employer] FORMER: Ramila Ramírez RDCS
[2019-10-24 12:03] LABS: Glucose,Whole Blood 127 mg/dL (75-99)
[2019-10-24 13:03] LABS: Hemoglobin A1C 5.2 % (4.0-6.0)
--- NOTE | 2019-10-24 13:20 | P.PN ---
Subjective Progress Note Date: 10/24/19 This is a 78 show old gentleman patient of Dr. Duarte. He has known history of hypertension hyperlipidemia chronic tobacco use, without prior history of NM or diabetes mellitus admitted to the emergency room secondary to increasing dyspnea and shortness of breath. Patient was well he was seen by his PCP approximately last week, did not require any treatment or medication changes. Patient was sick for approximately one day 2 days, with cough, and increasing shortness of breath. Patient was coughing so hard now he caused him to have some chest pressure, radiating to the back side. He denies any history of cardiac disease no previous stroke, and was not diagnosed to have COPD by anyone. He has d iscomfort between the shoulder blades off and on, did not require any evaluation as he didn't mention this to his PCP. He subsequently was seen in the emergency room, for which nitroglycerin O2 and aspirin was given, which has relieved some of the symptoms. His chest pressure continued from the time he was at home until his ER evaluation In the emergency room, he had troponins that was 0.78, EKG shows elevated ST segments to 3 and aVF, chest x-ray consistent with pulmonary edema, patient requ ired emergent cardiac cath are 5:55 AM today 10/23/[address] michelle. Statins beta anne marie and antiplatelet agents were subsequently started Cardiac catheterization performed 10/23/2019 showed a totally occluded right coronary artery, unsuccessful stenting, critical stenosis proximal LAD, with successful stenting from 99% to 0% with Xience stent 2 stents placed in this vessel, patient was subsequently transferred to ICU, he would be reevaluated regarding revascularization of his RCA . And is committed to quitting smoking, he is receiving beta blockers Zachary inhibitors and statins. He is also on dual antiplatelet regimen 10/24: Patient remains in the intensive care unit. Patient denies having any back or chest pain. Breathing is improved today. No dizziness or lightheadedness. He has been afebrile, heart rate 68, blood pressure 155/79, pulse ox 95% on room air. Repeat lab work reveals a platelet count of 121, potassium 3.3 and has been replaced. Triglycerides 147, cholesterol 106, LDL 52, HDL 25. Dr. Dooley has increased lisinopril to 10 mg twice daily, echocardiogram has been obtained and report is pending. Patient has been cleared by Dr. Dooley for transfer to the cardiac stepdown unit. Echocardiogram reveals EF of 55-60% with moderate concentric left ventricular hypertrophy, trace to mild mitral regurgitation, mild tricuspid regurgitation, mild pulmonary hyperten patricio. Anticipate probable discharge tomorrow. Review of Systems Constitutional: Denies anorexia, Denies chills, Denies chronic headaches, Denies chronic pain, Denies daytime sleepiness, Denies fatigue, Denies fever, Denies lethargy, Denies malaise, Denies night sweats, Denies poor appetite, Denies sweats, Denies weakness, Denies weight gain, Denies weight loss Cardiovascular: Denies chest pain, Denies decreased exercise tolerance, Denies dyspnea on exertion, Denies edema, Denies high blood pressure, Denies irregular heart beat, Denies leg edema, Denies lightheadedness, Denies orthopnea, Denies palpitations, Denies paroxysmal nocturnal dyspnea, Denies phlebitis, Denies rapid heart beat, Denies shortness of breath, Denies syncope Respiratory: Denies cough, denies cough with sputum, Denies congestion, Denies dyspnea, Denies excessive sputum, Denies hemoptysis, Denies home oxygen, Denies pain, Denies pain on inspiration, Denies pleurisy, Denies respiratory infections, Denies sleep apnea, Denies snoring, Denies wheezing Gastrointestinal: Denies nausea, denies vomiting, denies diarrhea Genitourinary: Denies urinary retention Musculoskeletal: Denies arm numbness/tingling, Denies atrophy, Denies fractures, Denies frequent falls, Denies gait dysfunction, Denies hot joints, Denies leg numbness/tingling, Denies limitation of motion, Denies loss of height, Denies low back pain, Denies morning stiffness, Denies muscle cramps, Denies muscle weakness, Denies myalgias, Integumentary: Denies pruritus, Denies rash Neurological: Denies aphasia, Denies ataxia, Denies balance difficulties, Denies burning pain, Denies change in mentation, Denies change in smell/taste, Denies change in speech, Denies confusion, Denies convulsions, Denies double vision, Denies gait dysfunction, Denies head injury, Denies headaches, Denies hearing difficulties, Denies lack of coordination, Denies loss of vision, Denies memory loss, Denies migraines, Denies motor disturbance, Denies numbness, Psychiatric: Denies anxiety, Denies anxiety attacks, Denies depression Allergic/Immunologic: Denies allergic rhinitis, Denies anaphylaxis, Objective - Vital Signs Vital signs: Vital Signs Temp 98.5 F 10/24/19 08:00 Pulse 71 10/24/19 10:00 Resp 18 10/24/19 10:00 BP 165/82 10/24/19 10:00 Pulse Ox 96 10/24/19 10:00 Intake & Output 10/23/19 10/24/19 10/24/19 18:59 06:59 18:59 Intake Total 794.35 Output Total 2550 1540 675 Balance -1755.65 -1540 -675 Weight 94.6 kg Intake: IV 700 Sodium Chloride 0.9% 1, 700 000 ml @ 75 mls/hr IV . [id number] [facility] Rx#:[id number] Intake, IV Titration 94.35 Amount Nitroglycerin-D5w Pmx 50 94.35 mg In Dextrose/Water 1 250ml.bag @ 10 MCG/MIN 3 mls/hr IV .Q24H ONE Rx#: [id number] Output: Urine 2550 1540 675 Other: Voiding Method Urinal Urinal Urinal # Bowel Movements 1 - Exam - Constitutional General appearance: cooperative, no acute distress, obese, patient sitting up in a recliner. - EENT Eyes: anicteric sclerae, EOMI, PERRLA, dentition normal, normal appearance ENT: NA/AT, normal oropharynx - Neck Neck: normal ROM - Respiratory Respiratory: bilateral: CTA, diminished, negative: dullness, rales, wheezing - Cardiovascular Rhythm: regular Heart sounds: normal: S1, S2 - Gastrointestinal General gastrointestinal: normal bowel sounds, soft - Integumentary Integumentary: normal, normal turgor - Neurologic Neurologic: CNII-XII intact - Musculoskeletal Musculoskeletal: gait normal, strength equal bilaterally - Psychiatric Psychiatric: A&O x's 3, appropriate affect, intact judgment & insight - Labs CBC & Chem 7: 10/24/19 04:52 10/24/19 04:52 Labs: Abnormal Lab Results - Last 24 Hours (Table) 10/23/19 10/23/19 10/23/19 Range/Units 09:46 16:13 16:35 Plt Count (150-450) k/uL Potassium (3.5-5.1) mmol/L Glucose (74-99) mg/dL POC Glucose (mg/dL) 112 H (75-99) mg/dL Troponin I 47.100 H* 35.700 H* (0.000-0.034) ng/mL HDL Cholesterol (40-60) mg/dL 10/23/19 10/24/19 10/24/19 Range/Units 20:34 04:52 04:52 Plt Count 121 L (150-450) k/uL Potassium 3.3 L (3.5-5.1) mmol/L Glucose 109 H (74-99) mg/dL POC Glucose (mg/dL) 122 H (75-99) mg/dL Troponin I (0.000-0.034) ng/mL HDL Cholesterol 25 L (40-60) mg/dL Assessment and Plan Plan: 1. Acute STEMI, inferior NM, chronically occluded RCA, unsuccessful stenting, critical stenosis proximal LAD with successful balloon angioplasty and stenting 2 stents placed in this vessel Dr. Dooley on 10/23/2019. Continue aspirin 81 mg daily, Lipitor 80 mg at bedtime, lisinopril 10 mg twice daily, Lopressor 25 mg twice daily, Proventil 90 mg twice daily, Aldactone 25 mg daily. Patient be transferred to the cardiac stepdown unit. Anticipate discharge home tomorrow. 2. Acute pulmonary edema secondary to NM. Continue oral Lasix 20 mg twice a day and Aldactone 25 mg daily. 3. COPD, without exacerbation. 4. Hyperglycemia. A1C 5.2. 5. Tobacco use and dependence. Smoking cessation discussed. 6. Hyperlipidemia. Lipitor 80 mg daily. 7. Benign prostatic hypertrophy. Monitor for urinary retention. 8. Hypertension. Continue metoprolol, lisinopril has been increased by cardiology to 10 mg twice daily. Discharge plan: Home tomorrow Impression and plan of care have been directed as dictated by the signing physician. Sima Zeng nurse practitioner acting as scribe for signing physician.
[2019-10-24 17:05] LABS: Glucose,Whole Blood 130 mg/dL (75-99)
[2019-10-24] MEDS: ATORVASTATIN 80 MG TAB PO SCH (20:36)
[2019-10-24 20:44] LABS: Glucose,Whole Blood 110 mg/dL (75-99)
[2019-10-25 05:37] LABS: African American GFR (CKD) >90 (>60 ml/min/1.73 sqM); Anion Gap 7 mmol/L; Blood Urea Nitrogen 15 mg/dL (9-20); Calcium 8.6 mg/dL (8.4-10.2); Carbon Dioxide 24 mmol/L (22-30); Chloride 107 mmol/L (98-107); Glucose 124 mg/dL (74-99); Non-African American GFR(CKD) 88 (>60 ml/min/1.73 sqM); Potassium 3.5 mmol/L (3.5-5.1); Sodium 138 mmol/L (137-145)
[2019-10-25] MEDS: INSULIN ASPART (NovoLOG) 100 UNIT/ML VIAL SQ SCH ×2 (06:47→11:55)
--- NOTE | 2019-10-25 08:16 | PN ---
PROGRESS NOTE Mr. Leone is a 78-year-old male who presented with an acute myocardial infarction, underwent cardiac catheterization and stenting of the LAD. He has a chronically occluded RCA. He is doing well today. His breathing is stable. He denies any chest pain. He denies any dizziness, palpitation. He has no further discomfort between the upper shoulder blade. He continues to be in sinus mechanism with the evidence of tachycardia or bradycardia. He continues to be on aspirin once a day, Brilinta 90 mg twice a day, Lipitor 80 mg daily, furosemide 20 mg twice a day, Zestril 10 mg twice a day, metoprolol tartrate 25 mg daily, and Aldactone 25 mg daily. PHYSICAL EXAMINATION: Blood pressure 120/50 with a heart rate in the 60s. LUNGS: Clear. HEART: Regular rate and rhythm, S1, S2. No S3. No rub. ABDOMEN: Soft, nontender. EXTREMITIES: No edema. LAB DATA: Revealed BUN and creatinine 15 and 0.77, potassium 3.5. Echocardiogram performed yesterday revealed mild inferobasal hypokinesis. Ejection fraction was estimated 55%- 60%. IMPRESSION: 1. Status post stenting of the LAD in a setting of an acute myocardial infarction. 2. Chronically occluded right coronary artery. 3. History of hypertension. 4. Hyperlipidemia. 5. Prior history of smoking. RECOMMENDATION: I will decrease the dose of Lasix. Increase his activity. He should be able to be transferred to the telemetry floor and if stable, discharged home tomorrow. MMODL / IJN: [id number] /
[2019-10-25] MEDS: METOPROLOL TARTRATE 25 MG TAB PO SCH ×2 (08:33→21:12)
[2019-10-25] MEDS: LISINOPRIL 10 MG TAB PO SCH ×2 (08:33→21:12)
[2019-10-25] MEDS: SPIRONOLACTONE 25 MG TAB PO SCH (08:33)
[2019-10-25] MEDS: TICAGRELOR 90 MG TAB PO SCH ×2 (08:34→21:13)
[2019-10-25] MEDS: ASPIRIN 81 MG PO SCH (08:34)
[2019-10-25] MEDS ORDERED: FUROSEMIDE 20 MG TAB PO SCH (09:00)
[2019-10-25 11:48] LABS: Glucose,Whole Blood 113 mg/dL (75-99)
--- NOTE | 2019-10-25 12:52 | P.PN ---
Subjective Progress Note Date: 10/25/19 This is a 78 show old gentleman patient of Dr. Duarte. He has known history of hypertension hyperlipidemia chronic tobacco use, without prior history of FL or diabetes mellitus admitted to the emergency room secondary to increasing dyspnea and shortness of breath. Patient was well he was seen by his PCP approximately last week, did not require any treatment or medication changes. Patient was sick for approximately one day 2 days, with cough, and increasing shortness of breath. Patient was coughing so hard now he caused him to have some chest pressure, radiating to the back side. He denies any history of cardiac disease no previous stroke, and was not diagnosed to have COPD by anyone. He has d iscomfort between the shoulder blades off and on, did not require any evaluation as he didn't mention this to his PCP. He subsequently was seen in the emergency room, for which nitroglycerin O2 and aspirin was given, which has relieved some of the symptoms. His chest pressure continued from the time he was at home until his ER evaluation In the emergency room, he had troponins that was 0.78, EKG shows elevated ST segments to 3 and aVF, chest x-ray consistent with pulmonary edema, patient requ ired emergent cardiac cath are 5:55 AM today 10/23/[address] michelle. Statins beta anne marie and antiplatelet agents were subsequently started Cardiac catheterization performed 10/23/2019 showed a totally occluded right coronary artery, unsuccessful stenting, critical stenosis proximal LAD, with successful stenting from 99% to 0% with Xience stent 2 stents placed in this vessel, patient was subsequently transferred to ICU, he would be reevaluated regarding revascularization of his RCA . And is committed to quitting smoking, he is receiving beta blockers Zachary inhibitors and statins. He is also on dual antiplatelet regimen 10/24: Patient remains in the intensive care unit. Patient denies having any back or chest pain. Breathing is improved today. No dizziness or lightheadedness. He has been afebrile, heart rate 68, blood pressure 155/79, pulse ox 95% on room air. Repeat lab work reveals a platelet count of 121, potassium 3.3 and has been replaced. Triglycerides 147, cholesterol 106, LDL 52, HDL 25. Dr. Dooley has increased lisinopril to 10 mg twice daily, echocardiogram has been obtained and report is pending. Patient has been cleared by Dr. Dooley for transfer to the cardiac stepdown unit. Echocardiogram reveals EF of 55-60% with moderate concentric left ventricular hypertrophy, trace to mild mitral regurgitation, mild tricuspid regurgitation, mild pulmonary hyperten patricio. Anticipate probable discharge tomorrow. 10/25: Patient states that he has been doing well. He states he continues not be able to sleep very much. H he is complaining of some constipation and states his last bowel movement was a couple days ago but does not want any medication to help. We will denies having any chest pain, no shortness of breath. Patient is waiting for a bed on the cardiac stepdown unit. Dr. Dooley has decreased Lasix. Anticipate discharge home tomorrow. Review of Systems Constitutional: Denies anorexia, Denies chills, Denies chronic headaches, Denies chronic pain, Denies daytime sleepiness, Denies fatigue, Denies fever, Denies lethargy, Denies malaise, Denies night sweats, Denies poor appetite, Denies sweats, Denies weakness, Denies weight gain, Denies weight loss Cardiovascular: Denies chest pain, Denies decreased exercise tolerance, Denies dyspnea on exertion, Denies edema, Denies high blood pressure, Denies irregular heart beat, Denies leg edema, Denies lightheadedness, Denies orthopnea, Denies palpitations, Denies paroxysmal nocturnal dyspnea, Denies phlebitis, Denies rapid heart beat, Denies shortness of breath, Denies syncope Respiratory: Denies cough, denies cough with sputum, Denies congestion, Denies dyspnea, Denies excessive sputum, Denies hemoptysis, Denies home oxygen, Denies pain, Denies pain on inspiration, Denies pleurisy, Denies respiratory infections, Denies sleep apnea, Denies snoring, Denies wheezing Gastrointestinal: Denies nausea, denies vomiting, denies diarrhea Genitourinary: Denies urinary retention Musculoskeletal: Denies arm numbness/tingling, Denies atrophy, Denies fractures, Denies frequent falls, Denies gait dysfunction, Denies hot joints, De nies leg numbness/tingling, Denies limitation of motion, Denies loss of height, Denies low back pain, Denies morning stiffness, Denies muscle cramps, Denies muscle weakness, Denies myalgias, Integumentary: Denies pruritus, Denies rash Neurological: Denies aphasia, Denies ataxia, Denies balance difficulties, Denies burning pain, Denies change in mentation, Denies change in smell/taste, Denies change in speech, Denies confusion, Denies convulsions, Denies double vision, Denies gait dysfunction, Denies head injury, Denies headaches, Denies hearing difficulties, Denies lack of coordination, Denies loss of vision, Denies memory loss, Denies migraines, Denies motor disturbance, Denies numbness, Psychiatric: Denies anxiety, Denies anxiety attacks, Denies depression, reports insomnia. Allergic/Immunologic: Denies allergic rhinitis, Denies anaphylaxis, Objective - Vital Signs Vital signs: Vital Signs Temp 98.3 F 10/25/19 08:00 Pulse 61 10/25/19 08:00 Resp 20 10/25/19 08:00 BP 141/75 10/25/19 08:00 Pulse Ox 95 10/25/19 08:00 Intake & Output 10/24/19 10/25/19 10/25/19 18:59 06:59 18:59 Output Total 1775 300 900 Balance -1775 -300 -900 Weight 88.6 kg Output: Urine 1775 300 900 Other: Voiding Method Urinal Urinal - Exam - Constitutional General appearance: cooperative, no acute distress, obese, patient resting in bed and family members at bedside. - EENT Eyes: anicteric sclerae, EOMI, PERRLA, dentition normal, normal appearance ENT: NA/AT, normal oropharynx - Neck Neck: normal ROM - Respiratory Respiratory: bilateral: CTA, diminished, negative: dullness, rales, wheezing - Cardiovascular Rhythm: regular Heart sounds: normal: S1, S2 - Gastrointestinal General gastrointestinal: normal bowel sounds, soft - Integumentary Integumentary: normal, normal turgor - Neurologic Neurologic: CNII-XII intact - Musculoskeletal Musculoskeletal: gait normal, strength equal bilaterally - Psychiatric Psychiatric: A&O x's 3, appropriate affect, intact judgment & insight - Labs CBC & Chem 7: 10/24/19 04:52 10/25/19 04:45 Labs: Abnormal Lab Results - Last 24 Hours (Table) 10/24/19 10/24/19 10/24/19 Range/Units 11:52 16:54 20:32 Glucose (74-99) mg/dL POC Glucose (mg/dL) 127 H 130 H 110 H (75-99) mg/dL 10/25/19 Range/Units 04:45 Glucose 124 H (74-99) mg/dL POC Glucose (mg/dL) (75-99) mg/dL Assessment and Plan Plan: 1. Acute STEMI, inferior FL, chronically occluded RCA, unsuccessful stenting, critical stenosis proximal LAD with successful balloon angioplasty and stenting 2 stents placed in this vessel Dr. Dooley on 10/23/2019. Continue aspirin 81 mg daily, Lipitor 80 mg at bedtime, lisinopril 10 mg twice daily, Lopressor 25 mg t wice daily, Proventil 90 mg twice daily, Aldactone 25 mg daily. Patient be transferred to the cardiac stepdown unit. Anticipate discharge home tomorrow. 2. Acute pulmonary edema secondary to FL. Continue oral Lasix 20 mg decreased to once daily and continue Aldactone 25 mg daily. 3. COPD, without exacerbation. 4. Hyperglycemia. A1C 5.2. 5. Tobacco use and dependence. Smoking cessation discussed. 6. Hyperlipidemia. Lipitor 80 mg daily. 7. Benign prostatic hypertrophy. Monitor for urinary retention. 8. Hypertension. Continue metoprolol, lisinopril has been increased by cardiology to 10 mg twice daily. Discharge plan: Home tomorrow Impression and plan of care have been directed as dictated by the signing physician. Sima Zeng nurse practitioner acting as scribe for signing physician.
[2019-10-25] MEDS: ATORVASTATIN 80 MG TAB PO SCH (21:12)
[2019-10-25 23:05] VITALS: RESP 16
[2019-10-26 06:37] LABS: African American GFR (CKD) >90 (>60 ml/min/1.73 sqM); Anion Gap 10 mmol/L; Blood Urea Nitrogen 19 mg/dL (9-20); Calcium 8.7 mg/dL (8.4-10.2); Carbon Dioxide 26 mmol/L (22-30); Chloride 104 mmol/L (98-107); Glucose 114 mg/dL (74-99); Non-African American GFR(CKD) 85 (>60 ml/min/1.73 sqM); Potassium 3.7 mmol/L (3.5-5.1); Sodium 140 mmol/L (137-145)
[2019-10-26] MEDS ORDERED: LISINOPRIL 20 MG TAB PO SCH (09:00)
[2019-10-26] MEDS: TICAGRELOR 90 MG TAB PO SCH (09:07)
[2019-10-26] MEDS: METOPROLOL TARTRATE 25 MG TAB PO SCH (09:07)
[2019-10-26] MEDS: SPIRONOLACTONE 25 MG TAB PO SCH (09:07)
[2019-10-26] MEDS: ASPIRIN 81 MG PO SCH (09:07)
--- NOTE | 2019-10-26 09:17 | PN ---
PROGRESS NOTE Mr. Leone is a 78-year-old male who presented with an acute myocardial infarction, underwent cardiac catheterization and stenting of the LAD has a chronic occluded right coronary artery. He is doing quite well this morning. Ambulating without difficulty. Denying any chest pain. No dizziness. No palpitation. He denies any nausea or vomiting. He continues on aspirin once a day, Brilinta 90 mg twice a day, metoprolol tartrate 25 mg twice a day, Lasix 20 mg daily, Zestril 10 mg daily. PHYSICAL EXAMINATION: Blood pressure 142/60 with the heart rate in the 60s. LUNGS: Clear. HEART: Regular rate and rhythm. S1, S2. No S3. No rub. ABDOMEN: Soft, nontender. EXTREMITIES: No edema. LAB DATA: Lab data revealed BUN and creatinine 19 and 0.84, potassium 3.7. IMPRESSION: 1. Status post acute myocardial infarction and stenting of the left anterior descending artery. 2. Chronically occluded right coronary artery. 3. Hypertension. 4. Hyperlipidemia. RECOMMENDATION: We will continue present therapy, increase his level activity. I would expect he should be able to be discharged home today and followed as an outpatient. MMODL / IJN: [id number] /
[2019-10-26 11:50] VITALS: BP 128/60; PULSE 67; TEMP 98.3
--- NOTE | 2019-10-28 07:58 | P.DS ---
Providers Date of admission: 10/23/19 04:33 Expected date of discharge: 10/26/19 Attending physician: Dottie Sheets Consults: 10/23/19 05:39 Consult Physician Routine Consulting Provider: [facility] Consult Reason/Comments: Post Interventional patient Do you want consulting provider notified?: Already Contacted [facility]: This is a 78 show old gentleman patient of Dr. Duarte. He has known history of hypertension hyperlipidemia chronic tobacco use, without prior history of AK or diabetes mellitus admitted to the emergency room secondary to increasing dyspnea and shortness of breath. Patient was well he was seen by his PCP approximately last week, did not require any treatment or medication changes. Patient was sic k for approximately one day 2 days, with cough, and increasing shortness of breath. Patient was coughing so hard now he caused him to have some chest pressure, radiating to the back side. He denies any history of cardiac disease no previous stroke, and was not diagnosed to have COPD by anyone. He has discomfort between the shoulder blades off and on, did not require any evaluation as he didn't mention this to his PCP. He subsequently was seen in the emergency room, for which nitroglycerin O2 and aspirin was given, which has relieved some of the symptoms. His chest pressure continued from the time he was at home until his ER evaluation In the emergency room, he had troponins that was 0.78, EKG shows elevated ST segments to 3 and aVF, chest x-ray consistent with pulmonary edema, patient required emergent cardiac cath are 5:55 AM today 10/23/[address] michelle. Statins beta anne marie and antiplatelet agents were subsequently started Cardiac catheterization performed 10/23/2019 showed a totally occluded right coronary artery, unsuccessful stenting, critical stenosis proximal LAD, with successful stenting from 99% to 0% with Xience stent 2 stents placed in this vessel, patient was subsequently transferred to ICU, he would be reevaluated regarding revascularization of his RCA . And is committed to quitting smoking, he is receiving beta blockers Zachary inhibitors and statins. He is also on dual antiplatelet regimen 10/24: Patient remains in the intensive care unit. Patient denies having any back or chest pain. Breathing is improved today. No dizziness or lightheadedness. He has been afebrile, heart rate 68, blood pressure 155/79, pulse ox 95% on room air. Repeat lab work reveals a platelet count of 121, potassium 3.3 and has been replaced. Triglycerides 147, cholesterol 106, LDL 52, HDL 25. Dr. Dooley has increased lisinopril to 10 mg twice daily, echocardiogram has been obtained and report is pending. Patient has been cleared by Dr. Dooley for transfer to the cardiac stepdown unit. Echocardiogram reveals EF of 55-60% with moderate concentric left ventricular hypertrophy, trace to mild mitral regurgitation, mild tricuspid regurgitation, mild pulmonary hy pertension. Anticipate probable discharge tomorrow. 10/25: Patient states that he has been doing well. He states he continues not be able to sleep very much. H he is complaining of some constipation and states his last bowel movement was a couple days ago but does not want any medication to help. We will denies having any chest pain, no shortness of breath. Patient is waiting for a bed on the cardiac stepdown unit. Dr. Dooley has decreased Lasix. Anticipate discharge home tomorrow. 10/26: Patient has been evaluated by Dr. Dooley this morning and has been cleared for discharge home. Patient has been afebrile, heart rate 77, blood pressure 139/64, pulse ox 97% on room air. A repeat lab work reveals electrolytes normal, BUN 19 and creatinine 0.84, blood sugar 114. Patient will be discharged home today in stable condition. Discharge diagnoses: 1. Acute STEMI, inferior AK, chronically occluded RCA, unsuccessful stenting, critical stenosis proximal LAD with successful balloon angioplasty and stenting 2 stents placed in this vessel Dr. Dooley on 10/23/2019. 2. Acute pulmonary edema secondary to AK. 3. COPD, without exacerbation. 4. Hyperglycemia. A1C 5.2. 5. Tobacco use and dependence. 6. Hyperlipidemia. 7. Benign prostatic hypertrophy. 8. Hypertension. Discharge plan: Home Impression and plan of care have been directed as dictated by the signing physician. Sima Zeng nurse practitioner acting as scribe for signing physician. Patient Condition at Discharge: Good Plan - Discharge Summary Discharge Rx Participant: Yes New Discharge Prescriptions: New Spironolactone [Aldactone] 25 mg PO DAILY #90 tab Ticagrelor [Brilinta] 90 mg PO BID #180 tab Atorvastatin [Lipitor] 80 mg PO HS #90 tab Metoprolol Tartrate [Lopressor] 25 mg PO BID #180 tab Nitroglycerin Sl Tabs [Nitrostat] 0.4 mg SUBLINGUAL Q5M PRN #25 tab PRN Reason: Chest Pain Continue Multivitamins, Thera [Multivitamin (formulary)] 1 tab PO DAILY Aspirin EC [Ecotrin Low Dose] 81 mg PO DAILY Triamcinolone 0.5% Cream [Kenalog 0.5% Cream] 1 applic TOPICAL BID PRN PRN Reason: Rash Lisinopril 20 mg PO BID Discontinued Simvastatin [Zocor] 10 mg PO HS Metoprolol Tartrate [Lopressor] 100 mg PO BID Ibuprofen [Motrin] 600 mg PO TID PRN PRN Reason: Pain Discharge Medication List Aspirin EC [Ecotrin Low Dose] 81 mg PO DAILY 10/23/19 [History] Lisinopril 20 mg PO BID 10/23/19 [History] Multivitamins, Thera [Multivitamin (formulary)] 1 tab PO DAILY 10/23/19 [History] Triamcinolone 0.5% Cream [Kenalog 0.5% Cream] 1 applic TOPICAL BID PRN 10/23/19 [History] Atorvastatin [Lipitor] 80 mg PO HS #90 tab 10/26/19 [Rx] Metoprolol Tartrate [Lopressor] 25 mg PO BID #180 tab 10/26/19 [Rx] Nitroglycerin Sl Tabs [Nitrostat] 0.4 mg SUBLINGUAL Q5M PRN #25 tab 10/26/19 [Rx] Spironolactone [Aldactone] 25 mg PO DAILY #90 tab 10/26/19 [Rx] Ticagrelor [Brilinta] 90 mg PO BID #180 tab 10/26/19 [Rx] Follow up Appointment(s)/Referral(s): Traci Dooley MD [STAFF PHYSICIAN] - 11/02/19 4:00 pm ([place] [facility] [place] Ulises Duarte MD [Primary Care Provider] - 11/01/19 1:15 pm (Thursday) Patient Instructions/Handouts: Heart Healthy Diet (DC), After Radial Heart Catheterization (GEN) Activity/Diet/Wound Care/Special Instructions: Brilinta script at [facility] and free coupon can be applied Discharge Disposition: HOME SELF-CARE
== END 2019-10-26 15:15 | disposition home or self-care (01) | DRG 246 ==
LOC: EC 03:47 → 2SICU 04:33 → 3SCARD 10-25 12:20
PROVIDERS: ADMIT Family Medicine; ATTEND Family Medicine
PROC: B2111ZZ Fluoroscopy of Multiple Coronary Arteries using Low Osmolar Contrast (ICD-10-PCS; principal; 2019-10-23 04:27)
PROC: 027035Z Dilation of Coronary Artery, One Artery with Two Drug-eluting Intraluminal Devices, Percutaneous Approach (ICD-10-PCS; principal; 2019-10-23 04:27)
PROC: 4A023N7 Measurement of Cardiac Sampling and Pressure, Left Heart, Percutaneous Approach (ICD-10-PCS; principal; 2019-10-23 04:27)
DX: I21.19 ST elevation (STEMI) myocardial infarction involving other coronary artery of inferior wall (principal); J81.0 Acute pulmonary edema; E78.5 Hyperlipidemia, unspecified; F17.210 Nicotine dependence, cigarettes, uncomplicated; I11.9 Hypertensive heart disease without heart failure; I25.10 Atherosclerotic heart disease of native coronary artery without angina pectoris; J44.9 Chronic obstructive pulmonary disease, unspecified; K59.00 Constipation, unspecified; N40.0 Benign prostatic hyperplasia without lower urinary tract symptoms; Z79.02 Long term (current) use of antithrombotics/antiplatelets; Z79.82 Long term (current) use of aspirin; Z79.899 Other long term (current) drug therapy; Z80.51 Family history of malignant neoplasm of kidney; Z80.8 Family history of malignant neoplasm of other organs or systems; Z85.46 Personal history of malignant neoplasm of prostate; Z92.3 Personal history of irradiation; Z79.1 Long term (current) use of non-steroidal anti-inflammatories (NSAID); R73.9 Hyperglycemia, unspecified; Z71.6 Tobacco abuse counseling
CPT/HCPCS: 36415; 71045; 80048; 80053; 80061; 83036; 83735; 83880; 84132; 84484; 85025; 85347; 85610; 85730; 93005; 93306; 93458; 94660; 96365; 96375; 96376; 99285; C1874

== ENCOUNTER 2021-10-21 13:18 | Emergency (ER) | payer MEDICARE, OTHER ==
[2021-10-21 17:36] VITALS: TEMP 98.1
--- NOTE | 2021-10-21 19:14 | ED ---
General Adult HPI - General Chief complaint: Extremity Problem,Nontraumatic Stated complaint: Lt Foot Pain Time Seen by Provider: 10/21/21 18:50 Source: patient, RN notes reviewed, old records reviewed Mode of arrival: ambulatory Limitations: no limitations - History of Present Illness Initial comments: 80-year-old male, alert and oriented 4, presents to the emergency room with complaints of left ankle and heel pain since yesterday. Patient states it is red and tender to the touch. He denies any injury. Denies any fevers, nausea vomiting or diarrhea. Patient states that he has had history of congestive heart failure and takes Lasix. He states he gets his medications in a 90 day supply but he has no longer had a primary care doctor. He was trying to find a new doctor. -: days(s) (2) Location: left, lower extremity (heel) Radiation: non-radiation Severity scale (1-10): 8 Quality: constant Consistency: constant Improves with: none Worsens with: other (palpation) Associated Symptoms: other (blle swelling) Treatments Prior to Arrival: none - Related Data Home Medications Medication Instructions Recorded Confirmed Aspirin EC [Ecotrin Low Dose] 81 mg PO DAILY 10/23/19 10/23/19 Multivitamins, Thera [Multivitamin 1 tab PO DAILY 10/23/19 10/23/19 (formulary)] Triamcinolone 0.5% Cream [Kenalog 1 applic TOPICAL BID PRN 10/23/19 10/23/19 0.5% Cream] lisinopriL 20 mg PO BID 10/23/19 10/23/19 Previous Rx's Medication Instructions Recorded Atorvastatin [Lipitor] 80 mg PO HS #90 tab 10/26/19 Metoprolol Tartrate [Lopressor] 25 mg PO BID #180 tab 10/26/19 Nitroglycerin Sl Tabs [Nitrostat] 0.4 mg SUBLINGUAL Q5M PRN #25 tab 10/26/19 Spironolactone [Aldactone] 25 mg PO DAILY #90 tab 10/26/19 Ticagrelor [Brilinta] 90 mg PO BID #180 tab 10/26/19 Cephalexin [Keflex] 500 mg PO Q6HR 7 Days #28 cap 10/21/21 Indomethacin [Indocin] 50 mg PO TID 5 Days #15 capsule 10/21/21 Allergies Allergy/AdvReac Type Severity Reaction Status Date / Time No Known Allergies Allergy Verified 10/21/21 17:36 Review of Systems ROS Statement: Those systems with pertinent positive or pertinent negative responses have been documented in the HPI. ROS Other: All systems not noted in ROS Statement are negative. Past Medical History Past Medical History: No Reported History, Cancer Additional Past Medical History / Comment(s): Prostate CA -received radiation 2006- History of Any Multi-Drug Resistant Organisms: None Reported Past Surgical History: Heart Catheterization With Stent, Tonsillectomy Additional Past Surgical History / Comment(s): cat with 2 stents 2019 Past Anesthesia/Blood Transfusion Reactions: No Reported Reaction Past Psychological History: No Psychological Hx Reported Past Alcohol Use History: Occasional Past Drug Use History: None Reported - Past Family History Father Family Medical History: Cancer (Kidney liver) Mother Family Medical History: No Reported History (Old-age) Sister(s) Family Medical History: Cancer (Skin cancer) Daughter(s) Family Medical History: No Reported History General Exam Limitations: no limitations General appearance: alert, in no apparent distress Head exam: Present: atraumatic, normocephalic, normal inspection Eye exam: Present: normal appearance, EOMI ENT exam: Present: normal exam, normal oropharynx, mucous membranes moist Respiratory exam: Present: normal lung sounds bilaterally. Absent: respiratory distress, wheezes, rales, rhonchi, stridor Cardiovascular Exam: Present: regular rate, normal rhythm, normal heart sounds. Absent: systolic murmur, diastolic murmur, rubs, gallop, clicks Extremities exam: Present: full ROM, normal capillary refill, pedal edema (1+) Left Ankle exam: Present: tenderness, swelling Foot/Toe exam: Present: tenderness, swelling, erythema (Heel) Neurovascular tendon exam: Present: no vascular compromise. Absent: extremity cold to touch, pallor, foot drop Gait: observed and normal Right Ankle exam: Present: full ROM, swelling. Absent: tenderness, erythema Foot/Toe exam: Present: swelling. Absent: tenderness Neurovascular tendon exam: Present: no vascular compromise. Absent: extremity cold to touch, pallor, foot drop Gait: observed and normal Back exam: Present: full ROM. Absent: tenderness, CVA tenderness (R), CVA tenderness (L) Neurological exam: Present: alert, oriented X3, normal gait Psychiatric exam: Present: normal affect, normal mood Skin exam: Present: warm, dry, intact, normal color. Absent: rash, cyanosis, diaphoretic Course Vital Signs 10/21/21 10/21/21 17:27 19:39 Temperature 98.1 F Pulse Rate 93 103 H Respiratory 18 16 Rate Blood Pressure 200/75 187/99 O2 Sat by Pulse 99 97 Oximetry Medical Decision Making - Medical Decision Making Patient presents with 2 days of left heel redness and swelling. States worsens with shoe rubbing. It is red, warm and tender to the touch. Denies any fevers, nausea vomiting or diarrhea. He does not have a history of gout. This appears to be cellulitis. Dr. Tian at bedside to evaluate patient with concerns that this may be gout. Patient was also given indomethacin in addition to antibiotics. He was directed to return to the emergency room with any new or worsening symptoms. Follow up with his primary care doctor next week. Disposition Clinical Impression: Cellulitis, Gout Disposition: HOME SELF-CARE Condition: Good Additional Instructions: Take medications as prescribed and follow-up with the primary care doctor next week. Return to the emergency room with any new or worsening symptoms. Prescriptions: Indomethacin [Indocin] 50 mg PO TID 5 Days #15 capsule Cephalexin [Keflex] 500 mg PO Q6HR 7 Days #28 cap Is patient prescribed a controlled substance at d/c from ED?: No Referrals: None,Stated [Primary Care Provider] - 1-2 days Time of Disposition: 19:27
[2021-10-21] MEDS ORDERED: traMADol 50 MG STARTER PACK 3 TAB BTL PO STA (19:27)
[2021-10-21] MEDS ORDERED: traMADol 50 MG TAB PO STA (19:28)
[2021-10-21] MEDS ORDERED: INDOMETHACIN 25 MG CAP PO STA (19:28)
[2021-10-21 19:39] VITALS: BP 187/99; PULSE 103; RESP 16
== END 2021-10-21 19:51 | disposition home or self-care (01) ==
LOC: EC 13:18
DX: L03.116 Cellulitis of left lower limb (principal); M10.9 Gout, unspecified; I50.9 Heart failure, unspecified; Z79.82 Long term (current) use of aspirin
CPT/HCPCS: 99283

== ENCOUNTER → 2024-07-07 | Outpatient (CLI) | payer MEDICARE ==
--- NOTE | 2024-08-02 14:35 | US ---
Site ID [facility] Patient Pola Leone ID [id number] Age/Gender: 83Y, M Order # N/A Procedure US abdomen complete Date 07/07/2024 8:55:00 AM EXAMINATION TYPE: US abdomen complete DATE OF EXAM: 07/24/2024 COMPARISON: None, please note PACS Production downtime occurred during the radiologist interpretation of these images with limited priors/reports. CLINICAL INDICATION: Male, 83 year old with history of pancytopenia, liver disease. TECHNIQUE: Multiple sonographic images of the abdomen are obtained. FINDINGS: EXAM MEASUREMENTS: Liver Length: 16.5 cm Gallbladder Wall: 0.2 cm CBD: 0.4 cm Spleen: 13.4 cm Right Kidney: 10.5 x 5.7 x 4.4 cm Left Kidney: 11.0 x 5.3 x 4.2 cm SCHEDULING ADMINISTRATOR NOTES: Pancreas: Tail obscured by overlying bowel gas Liver: wnl Gallbladder: wnl Evidence for sonographic Corona's sign: No CBD: wnl Spleen: wnl Right Kidney: wnl Left Kidney: wnl Upper IVC: wnl Abd Aorta: Distal abdominal aorta demonstrates fusiform ectasia measuring up to 2.7 cm. The liver is homogenous without focal lesion. Noncirrhotic morphology. The intrahepatic portion of th e IVC is within normal lives. The distal abdominal aorta demonstrates ectasia measuring up to 2.7 ronda timeters. There is no evidence of cholelithiasis. Common bile duct is unremarkable. The visualized portions of the pancreas are homogenous. The spleen is unremarkable and at the upper limits of marsha l for size. Kidneys are symmetric and free of hydronephrosis. No renal lesions are seen. IMPRESSION: 1. No ultrasound evidence of acute process. 2. 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
== END | disposition home or self-care (01) ==
LOC: RADUSWWP 08:30
PROVIDERS: ATTEND Internal Medicine Hematology & Oncology
DX: I77.811 Abdominal aortic ectasia (principal); I10 Essential (primary) hypertension; I25.2 Old myocardial infarction; D61.818 Other pancytopenia; E78.5 Hyperlipidemia, unspecified
CPT/HCPCS: 76700